=== PATIENT | female | born 1990 | race Caucasian/White ===

== ENCOUNTER → 2018-08-19 | Outpatient (REF) | payer OTHER | LOC: M LAB REF 17:15 | PROVIDERS: ATTEND Physician Assistant | DX: J02.9 Acute pharyngitis, unspecified (principal) ==

== ENCOUNTER 2018-10-27 17:39 | Emergency (ER) | payer OTHER ==
[~2018-10-27] VITALS: Ht 160 cm; Wt 74.0 kg
[2018-10-27 18:48] LABS: BASO # 0.1 10^3/uL (0.0-0.2); BASO % 0.5 % (0.0-1.0); EOS # 0.1 10^3/uL (0.0-0.50); EOS % 0.4 % (0.0-3.0); HEMATOCRIT 44.2 % (36.0-47.0); HEMOGLOBIN 14.4 g/dl (12.0-15.5); LYMPH # 2.7 10^3/uL (1.5-6.5); LYMPH % 22.5 % (24.0-44.0); MEAN CORPUSCULAR HEMOGLOBIN 30.4 pg (27.0-33.0); MEAN CORPUSCULAR HGB CONC 32.6 g/dl (32.0-36.5); MEAN CORPUSCULAR VOLUME 93.2 fl (80.0-96.0); MONO % 8.1 % (0.0-5.0); NEUTROPHILS # 8.1 10^3/uL (1.8-7.7); NEUTROPHILS % 68.1 % (36.0-66.0); PLATELET COUNT, AUTOMATED 378 10^3/uL (150-450); RED BLOOD COUNT 4.74 10^6/uL (4.00-5.40); WHITE BLOOD COUNT 11.8 10^3/uL (4.0-10.0)
[2018-10-27 19:18] LABS: BLOOD UREA NITROGEN 11 MG/DL (7-18); CARBON DIOXIDE LEVEL 27 MEQ/L (21-32); CHLORIDE LEVEL 108 MEQ/L (98-107); CREATININE FOR GFR 0.73 MG/DL (0.55-1.30); GLOMERULAR FILTRATION RATE > 60.0 (>60); GLUCOSE, FASTING 82 MG/DL (70-100); SODIUM LEVEL 144 MEQ/L (136-145)
[2018-10-27 20:21] LABS: HCG, SERUM QUANTITATIVE 5 MIU/ML
[2018-10-27 21:04] VITALS: BP 125/79
== END 2018-10-27 21:08 | disposition home or self-care (01) ==
LOC: M ED 17:39
DX: O20.9 Hemorrhage in early pregnancy, unspecified (principal); R10.2 Pelvic and perineal pain; O99.331 Smoking (tobacco) complicating pregnancy, first trimester; F17.210 Nicotine dependence, cigarettes, uncomplicated; Z88.5 Allergy status to narcotic agent; Z3A.01 Less than 8 weeks gestation of pregnancy

== ENCOUNTER → 2019-02-03 | Outpatient (CLI) | payer OTHER ==
[2019-02-03 13:13] LABS: BASO % 0.3 % (0.0-1.0); EOS # 0.1 10^3/uL (0.0-0.5); EOS % 0.7 % (0.0-3.0); HEMATOCRIT 40.6 % (36.0-47.0); HEMOGLOBIN 13.3 g/dl (12.0-15.5); LYMPH # 2.1 10^3/uL (1.5-5.0); LYMPH % 22.3 % (24.0-44.0); MEAN CORPUSCULAR HEMOGLOBIN 30.2 pg (27.0-33.0); MEAN CORPUSCULAR HGB CONC 32.8 g/dl (32.0-36.5); MEAN CORPUSCULAR VOLUME 92.1 fl (80.0-96.0); MONO # 0.7 10^3/uL (0.0-0.8); NEUTROPHILS # 6.7 10^3/uL (1.5-8.5); NEUTROPHILS % 69.3 % (36.0-66.0); PLATELET COUNT, AUTOMATED 367 10^3/uL (150-450); RED BLOOD COUNT 4.41 10^6/uL (4.00-5.40); WHITE BLOOD COUNT 9.6 10^3/uL (4.0-10.0)
[2019-02-03 14:28] LABS: CHLAMYDIA DNA AMPLIFICATION NEGATIVE (NEGATIVE); GC DNA AMPLIFICATION NEGATIVE (NEGATIVE)
[2019-02-03 16:09] LABS: HIV 1&2 SCREEN CENTAUR NEGATIVE (NEGATIVE); RUBELLA IgG QUALITATIVE IMMUNE (IMMUNE)
== END ==
LOC: M SMT 09:37
PROVIDERS: ATTEND Advanced Practice Midwife
DX: Z34.80 Encounter for supervision of other normal pregnancy, unspecified trimester (principal)

== ENCOUNTER → 2019-02-21 | Outpatient (REF) | payer OTHER | LOC: M LAB REF 13:00 | PROVIDERS: ATTEND Advanced Practice Midwife | DX: Z34.81 Encounter for supervision of other normal pregnancy, first trimester (principal) ==

== ENCOUNTER → 2019-04-03 | Outpatient (CLI) | payer OTHER ==
--- NOTE | 2019-04-03 14:40 | REP ---
OB ULTRASOUND: Real-time sonographic evaluation of gravid uterus performed. There is a single living intrauterine gestation. The estimated gestational age is 18 weeks 0 days, EDC 09/04/2019. Todays measurements indicate appropriate growth. BPD 41 mm = 18 weeks 3 days, 63rd percentile HC 151 mm = 18 weeks 1 day, 54th percentile AC 128 mm = 18 weeks 3 days, 58th percentile Femur length 26 mm = 18 weeks 0 days, 49th percentile HC/AC ratio 1.17, within normal range. Estimated weight 228 grams, 54th percentile. Cervix is closed and measures 4.2 cm in length. heart rate 152 beats per minute. SEEN/GROSSLY UNREMARKABLE Lateral ventricles Yes Posterior fossa Yes Upper lip Yes Four-chamber heart No LVOT No RVOT No Stomach Yes Cord insertion Yes Three vessel cord Yes Kidneys Yes Bladder Yes Spine No position: Transverse with head toward the maternal left side. Placenta: Anterior and grade 0 with no previa or abruption. Amniotic fluid: Within normal limits. Unreviewed
== END ==
LOC: M RAD 12:57
PROVIDERS: ATTEND Obstetrics & Gynecology
DX: Z34.80 Encounter for supervision of other normal pregnancy, unspecified trimester (principal); Z3A.18 18 weeks gestation of pregnancy

== ENCOUNTER 2019-05-05 21:48 | Outpatient (CLI) | payer OTHER ==
[~2019-05-05] VITALS: Ht 162.6 cm; Wt 74.6 kg
[2019-05-05 22:25] VITALS: BP 103/60
[2019-05-05 22:53] LABS: AMORPHOUS SEDIMENT SMALL (NEGATIVE); APPEARANCE, URINE HAZY (CLEAR); BACTERIA, URINE AUTO 1+ (NEGATIVE); BILIRUBIN, URINE AUTO NEGATIVE (NEGATIVE); BLOOD, URINE BLOOD NEGATIVE (NEGATIVE); COLOR, URINE YELLOW (YELLOW); GLUCOSE, URINE (UA) AUTO NEGATIVE (NEGATIVE); KETONE, URINE AUTO TRACE mg/dL (NEGATIVE); LEUKOCYTE ESTERASE, URINE AUTO NEGATIVE (NEGATIVE); MUCUS, URINE SMALL (NEGATIVE); NITRITE, URINE AUTO NEGATIVE (NEGATIVE); PROTEIN, URINE AUTO NEGATIVE (NEGATIVE); RBC, URINE AUTO 2 /HPF (0-3); SPECIFIC GRAVITY URINE AUTO 1.015 (1.002-1.035); SQUAMOUS EPITHELIAL CELL UR AU 1 /HPF (0-6); UROBILINOGEN, URINE AUTO 0.2 mg/dL (0.0-2.0); WBC, URINE AUTO 2 /HPF (0-3)
[2019-05-05] MEDS ORDERED: PRENTAB9 PO (23:00)
--- NOTE | 2019-05-05 23:01 | IPNPDOC ---
Text Note Date of Service The patient was seen on 05/05/19. NOTE Subjective: Cristina is a 28-year-old at 22.2wk gestation by LMP and consistent with first trimester ultrasound at 8.3wks. REECE: 09/04/19. She initiated her care with [facility] in her first trimester. Her has been uncomplicated. She presents to L&D with complaints of continuous leakage of small amount of clear, odorless discharge/fluid beginning earlier today. She is unsure of the timing but reports underwear being constantly wet. Patient denies vaginal itching, burning or dysuria. She denies any incontinence. Patient denies vaginal bleeding. Reports positive movement. She denies contractions or cramping. Allergy: Hydrocodone current medications: vitamins. OBGYN History: one full-term delivery October 2010 at 40 weeks of a living male via vaginal delivery weighting 7 lbs 8 oz. , two spontaneous abortions10/2008 and 10/2018, D&C from [facility] in 2008. Medical History: Raynaud's Syndrome Surgical History: D&C Social History: . Denies current tobacco use, former smoker. Denies alcohol abuse or drug use. No history of STDs. Family history: breast cancer, alcoholism, hypertension Objective: Alert and oriented x3. Respiratory rate is regular with no use of accessory muscles. Abdomen is gravid and soft and non tender with palpation. Fet al movement observed via bedside ultrasound with +FHR. Multiple pockets of fluid noted via bedside sono. JEFFREY obtained in 3 quadrants measuring 11.78cm. SSE: showed white discharge, no visible leakage of fluid or pooling in the vagina. Nitrazine negative and fern negative ferning. Wet mount did not show bacterial vaginosis or yeast. Urinalysis positive for trace ketones and urine culture pending. FHR baseline is 140. Assessment: IUP at 22 weeks gestation, leakage of fluid, membranes intact, not in labor Plan: Reviewed findings with patient. Encouraged patient to wear panty liner to monitor discharge. Danger signs of labor, rupture of membranes and abruption discussed. Encouraged adequate fluid intake. Will call patient with urine culture results if they are positive. Continue routine antepartum care, keep next visit. Patient has a repeat anatomy scan this week on . VS,Fishbone, I+O VS, Fishbone, I+O Vital Signs Label Value Date Time Patient Temperature 98.4 degrees F 05/05/192222 Pulse 87 05/05/192224 Respiratory Rate 16 bpm 05/05/192222 Blood Pressure Assessment 103/60 (74) 05/05/19 222 Source Automatic Cuff (NIBP) VIVIAN RAY CNM May 05, 2019 23:01
== END 2019-05-05 23:08 | disposition home or self-care (01) ==
LOC: M LDO 21:48
PROVIDERS: ATTEND Advanced Practice Midwife
DX: O26.892 Other specified pregnancy related conditions, second trimester (principal); Z3A.22 22 weeks gestation of pregnancy; Z88.5 Allergy status to narcotic agent; N89.8 Other specified noninflammatory disorders of vagina; O99.412 Diseases of the circulatory system complicating pregnancy, second trimester; I73.00 Raynaud's syndrome without gangrene

== ENCOUNTER → 2019-05-08 | Outpatient (CLI) | payer OTHER ==
[~2019-05-08] MED LIST: PRENTAB9 PO
--- NOTE | 2019-05-09 04:10 | REP ---
Clinical: Anatomical evaluation. Comparison: 04/03/2019 . Findings: Examination demonstrates a single live intrauterine in transverse presentation. motion is identified by technologist. Placenta is noted anterior and grade zero without evidence for placenta previa or abruption. Amniotic fluid volume is normal. Cervix measures 3.9 cm in length and appears closed. No evidence for nuchal cord. Gestational age by LMP 23 weeks 0 days with REECE 09/04/2019 . Gestational age by current measurements 22 weeks 5 days with REECE 09/06/2019 . FHR equals 144 beats per minute. Estimated weight 578 grams ( 53 percentile). Anatomical assessment demonstrates normal structures including four-chamber heart/ventricular outflow tracts, and spine. Impression: Single live intrauterine in transverse lie demonstrating appropriate interval growth. In conjunction with prior examination anatomical assessment is complete and normal.
== END ==
LOC: M WHC 09:00
PROVIDERS: ATTEND Advanced Practice Midwife
DX: O32.2XX0 Maternal care for transverse and oblique lie, not applicable or unspecified (principal); Z36.2 Encounter for other antenatal screening follow-up; Z3A.23 23 weeks gestation of pregnancy

== ENCOUNTER → 2019-06-03 | Outpatient (REF) | payer OTHER | LOC: M WHC 10:33 | PROVIDERS: ATTEND Advanced Practice Midwife | DX: Z34.82 Encounter for supervision of other normal pregnancy, second trimester (principal); Z3A.00 Weeks of gestation of pregnancy not specified ==

== ENCOUNTER → 2019-06-11 | Outpatient (REF) | payer OTHER ==
[2019-06-11 12:03] LABS: HEMATOCRIT 37.3 % (36.0-47.0); HEMOGLOBIN 12.1 g/dl (12.0-15.5); MEAN CORPUSCULAR HEMOGLOBIN 29.4 pg (27.0-33.0); MEAN CORPUSCULAR HGB CONC 32.4 g/dl (32.0-36.5); MEAN CORPUSCULAR VOLUME 90.5 fl (80.0-96.0); PLATELET COUNT, AUTOMATED 344 10^3/uL (150-450); RED BLOOD COUNT 4.12 10^6/uL (4.00-5.40); WHITE BLOOD COUNT 9.3 10^3/uL (4.0-10.0)
== END ==
LOC: M PLALAB 08:49
PROVIDERS: ATTEND Advanced Practice Midwife
DX: Z34.82 Encounter for supervision of other normal pregnancy, second trimester (principal); Z36.89 Encounter for other specified antenatal screening

== ENCOUNTER → 2019-07-02 | Outpatient (REF) | payer OTHER ==
[2019-07-02 15:57] LABS: ALT/SGPT 19 U/L (12-78); BILIRUBIN,DIRECT < 0.1 MG/DL (0.0-0.2); BILIRUBIN,TOTAL 0.3 MG/DL (0.2-1.0); TOTAL PROTEIN 7.1 GM/DL (6.4-8.2)
== END ==
LOC: M PLALAB 13:28
PROVIDERS: ATTEND Obstetrics & Gynecology
DX: Z34.93 Encounter for supervision of normal pregnancy, unspecified, third trimester (principal)

== ENCOUNTER → 2019-08-13 | Outpatient (REF) | payer OTHER | LOC: M PLALAB 13:42 | PROVIDERS: ATTEND Advanced Practice Midwife | DX: Z36.89 Encounter for other specified antenatal screening (principal); Z3A.00 Weeks of gestation of pregnancy not specified ==

== ENCOUNTER 2019-08-27 06:42 | Inpatient (IN) | payer OTHER ==
[~2019-08-27] VITALS: Ht 162.6 cm; Wt 78.0 kg
[2019-08-27] VITALS (42 sets, daily range): BP systolic 81–138; BP diastolic 51–77
[2019-08-27] MEDS ORDERED: OXYTOCIN 30 UNITS IN 0.9% NaCl 500ML IV BAG (J2590) As Ordered ONE (07:34)
[2019-08-27] MEDS ORDERED: LACTATED RINGER'S 1000 ML IV STA (07:44)
[2019-08-27 07:50] LABS: HEMATOCRIT 38.2 % (36.0-47.0); HEMOGLOBIN 12.6 g/dl (12.0-15.5); MEAN CORPUSCULAR HEMOGLOBIN 27.8 pg (27.0-33.0); MEAN CORPUSCULAR VOLUME 84.1 fl (80.0-96.0); PLATELET COUNT, AUTOMATED 366 10^3/uL (150-450); RED BLOOD COUNT 4.54 10^6/uL (4.00-5.40); WHITE BLOOD COUNT 17.5 10^3/uL (4.0-10.0)
[2019-08-27] MEDS: LR 1,000 ML IV SCH ×2 (07:53→12:46)
[2019-08-27] MEDS ORDERED: FENTANYL 2MCG/ML ROPIVACAINE 0.2% IN 0.9% NACL 100ML IVBAG As Ordered ONE (08:06)
--- NOTE | 2019-08-27 08:27 | HPE ---
DATE OF ADMISSION: 08/27/2019 Cristina is a 28-hour-old 4, para 1-0-2-1 at 38 and 6/7 weeks gestation, estimated date of confinement (EDC) of 09/04/2019 based on last menstrual period and confirmed by first her menstrual ultrasound. She presents to labor and delivery today with active labor. She was here earlier in the evening and sent home as she has no cervical change. She reports her spontaneous rupture of membranes, clear fluid at 0615 and contractions are more uncomfortable. She does report scant continued leakage. Denies vaginal bleeding and the fetus has been active. COURSE: Her care was initiated at [facility] in the first trimester. Her course, thus far, uncomplicated. OBSTETRICAL HISTORY: - October 2008, 8 weeks gestation miscarriage, dilation and curettage. - October 2010, spontaneous vaginal delivery of 7 pounds, 8 ounces male vaginal. Fetus in direct occiput posterior (OP) position. - October 18, 2018 spontaneous miscarriage. OBSTETRICAL LABS: A+, antibody screen negative, HIV negative, hepatitis B surface antigen negative. Hepatitis C antibody nonreactive, rubella immune, RPR nonreactive, gonorrhea and chlamydia negative. Urine culture negative. GBS negative. PAST MEDICAL HISTORY: Raynaud's disease. PAST SURGICAL HISTORY: Dilation and curettage. FAMILY HISTORY: Breast cancer, alcoholism, liver diseases. SOCIAL HISTORY: The patient is single, however, the father of the baby is at bedside and supportive. She is a nonsmoker. She denies alcohol or drug use. She denies any history of sexually transmitted infections. She denies history of abuse, physical, sexual and emotional. ALLERGIES: Vicodin. CURRENT MEDICATIONS: vitamins. OBJECTIVE: Temperature 97.1, pulse 82, blood pressure 118/70. heart rate is 140 with moderate variability about accelerations, no decelerations. Contractions every 3-5 minutes. Sterile vaginal exam: Per Saima Tillman RN, 4 cm dilated, 75% effaced, -2 station. ASSESSMENT: Intrauterine at 38-6/7 weeks. heart rate category 1, active labor. PLAN: Admit the patient to labor and delivery. Out of bed, ad baudilio IV fluid boluses as the patient is requesting an epidural for her labor coping, Routine labs. Will consider Pitocin as needed to augment her labor. I do anticipate continued labor progress and a spontaneous vaginal delivery. The patient has been verbally consented for emergency surgery and blood products if they are necessary.
[2019-08-27] MEDS ORDERED: EPIDURAL/PCA KEYS XX PRN (09:00)
[2019-08-27] MEDS ORDERED: REFRIGERATOR IV KEYS XX PRN (09:00)
[2019-08-27] MEDS ORDERED: NALOXONE INJ 0.4MG/1ML VIAL (J2310 PER 1MG) IV PRN (09:00)
[2019-08-27] MEDS ORDERED: ONDANSETRON 4MG/2ML VIAL IV PRN (09:00)
[2019-08-27] MEDS ORDERED: EPIDURAL COMMENT XX SCH (09:00)
[2019-08-27] MEDS ORDERED: FENTANYL/ROPIVACAINE/NACL BAG 100 ML EPIDURAL SCH (09:00)
[2019-08-27] MEDS ORDERED: diphenhydrAMINE 50MG/ML VIAL (J1200) IV PRN (09:00)
[2019-08-27] MEDS ORDERED: LACTATED RINGER'S 1000 ML IV PRN (09:00)
[2019-08-27] MEDS: ePHEDrine SULFATE 25 MG/5 ML(5MG/ML) SYRINGE IV PRN ×3 (09:17→09:48)
[2019-08-27] MEDS ORDERED: LR 1,000 ML IV SCH (11:49)
[2019-08-27] MEDS ORDERED: OXYTOCIN DRIP 30 UNITS in IV 1 EA IV SCH ×2 (12:00→15:35)
[2019-08-27] MEDS ORDERED: ACETAMINOPHEN TAB 650MG DOSE (2X325MG) PO PRN (15:45)
[2019-08-27] MEDS ORDERED: MEASLES,MUMPS,RUBELLA VACCINE INJ (MMR-II) (90707) SC SCH (15:45)
[2019-08-27] MEDS ORDERED: ACETAMINOPHEN 500 MG TAB PO PRN (15:45)
[2019-08-27] MEDS ORDERED: RHOGAM 300 MCG (1500 IU) INJ (J2790) IM SCH (15:45)
[2019-08-27] MEDS ORDERED: IBUPROFEN 800 MG TAB PO PRN (15:45)
[2019-08-27] MEDS ORDERED: METHYLERGONOVINE MALEATE 0.2 MG TAB PO PRN (15:45)
[2019-08-27] MEDS ORDERED: DIBUCAINE 1% OINTMENT 30GM TOP PRN (15:45)
[2019-08-27] MEDS ORDERED: DOCUSATE SODIUM 100 MG CAP PO PRN (15:45)
--- NOTE | 2019-08-27 15:59 | DN ---
DATE OF DELIVERY: 08/27/2019 DELIVERY NOTE: Cristina is a 28-year-old, 4, para 2-0-2-2 now, who is admitted to labor and delivery in active labor. She did utilize an epidural for her labor coping and she had a large amount of bloody show that was suspicious. She reached full dilation at 1426 hours. She pushed to a normal spontaneous vaginal delivery of a live female in right occiput posterior (ROP) position with restitution to occiput transverse (ROT) position. There was no nuchal cord. The shoulders delivered spontaneously and the corpus immediately followed. The female was placed on the maternal abdomen crying and active. Her mouth and nares were bulb suctioned. Spontaneous expulsion of an intact placenta with three-vessel cord by Evans mechanism was at 1505 hours. There appeared to be an approximately 30% of placental abruption. Uterine hemostasis was achieved with IV Pitocin rapid infusion and uterine fundal massage. Estimated blood loss 400 mL. Perineum and vagina inspected. Noted to have a vaginal abrasion. The vaginal abrasion had two interrupted sutures placed for hemostasis. female. Weight 6 pounds 8 ounces (2960 grams). score was 9 and 9. Mom is going to attempt to breast feed her daughter, and the family have named her Scarlet. At the close of delivery, lap counts, needle counts and instrument counts were correct and verified. [facility]
[2019-08-27] MEDS: IBUPROFEN 600 MG TAB PO PRN (21:50)
[2019-08-28 05:22] VITALS: BP 111/60
[2019-08-28] MEDS: IBUPROFEN 600 MG TAB PO PRN ×2 (08:03→23:53)
[2019-08-28] MEDS: PRENATAL VITAMINS CHEWABLE TABLET PO SCH (08:03)
[2019-08-28 18:06] VITALS: BP 114/73
[2019-08-29 06:00] VITALS: BP 122/73
[2019-08-29] MEDS ORDERED: ACET-683 PO (07:42)
[2019-08-29] MEDS: PRENATAL VITAMINS CHEWABLE TABLET PO SCH (08:27)
[2019-08-29] MEDS ORDERED: BOOSTRIX/ADACEL VACCINE (DIPHTH/PERTUSS/ACELL/TETANUS) 0.5ML SYR IM ONE (09:00)
== END 2019-08-29 11:10 | disposition home or self-care (01) | DRG 807 ==
LOC: M LDO 06:42 → M LDI 07:02 → M OBS 18:06
PROVIDERS: ADMIT Obstetrics & Gynecology; ATTEND Obstetrics & Gynecology
PROC: 10E0XZZ Delivery of Products of Conception, External Approach (ICD-10-PCS; principal; 2019-08-27)
DX: O45.8X3 Other premature separation of placenta, third trimester (principal); Z37.0 Single live birth; Z3A.38 38 weeks gestation of pregnancy

== ENCOUNTER → 2020-02-18 | Outpatient (REF) | payer OTHER ==
[~2020-02-18] MED LIST changes: +ACET-683 PO
[2020-02-18 15:14] LABS: CHLAMYDIA DNA AMPLIFICATION NEGATIVE (NEGATIVE); GC DNA AMPLIFICATION NEGATIVE (NEGATIVE)
[2020-02-18 16:38] LABS: HEPATITIS A ANTIBODY IGM NEGATIVE (NEGATIVE); HEPATITIS B CORE ANTIBODY IGM NEGATIVE (NEGATIVE); HEPATITIS B SURFACE ANTIGEN NEGATIVE (NEGATIVE); HEPATITIS C VIRUS ABY INDEX 0.1 INDEX (<0.8); HIV 1&2 SCREEN CENTAUR NEGATIVE (NEGATIVE)
== END ==
LOC: M PLALAB 11:49
PROVIDERS: ATTEND Obstetrics & Gynecology
DX: Z70.8 Other sex counseling (principal)

== ENCOUNTER → 2021-01-24 | Outpatient (REF) | payer OTHER | LOC: M LAB REF 16:26 | PROVIDERS: ATTEND Nurse Practitioner Family | DX: J02.9 Acute pharyngitis, unspecified (principal) ==

== ENCOUNTER → 2021-05-11 | Outpatient (CLI) | payer OTHER | LOC: M WHC 09:42 | PROVIDERS: ATTEND Nurse Practitioner Family | DX: Z12.31 Encounter for screening mammogram for malignant neoplasm of breast (principal); Z80.3 Family history of malignant neoplasm of breast ==

== ENCOUNTER → 2021-06-08 | Outpatient (REF) | payer OTHER ==
[2021-06-08 21:44] LABS: APPEARANCE, URINE HAZY (CLEAR); BACTERIA, URINE AUTO 2+ (NEGATIVE); BILIRUBIN, URINE AUTO NEGATIVE (NEGATIVE); BLOOD, URINE BLOOD NEGATIVE (NEGATIVE); COLOR, URINE YELLOW (YELLOW); GLUCOSE, URINE (UA) AUTO NEGATIVE (NEGATIVE); KETONE, URINE AUTO NEGATIVE (NEGATIVE); LEUKOCYTE ESTERASE, URINE AUTO TRACE (NEGATIVE); MUCUS, URINE SMALL (NEGATIVE); NITRITE, URINE AUTO NEGATIVE (NEGATIVE); PROTEIN, URINE AUTO NEGATIVE (NEGATIVE); RBC, URINE AUTO 0 /HPF (0-3); SPECIFIC GRAVITY URINE AUTO 1.009 (1.002-1.035); SQUAMOUS EPITHELIAL CELL UR AU 3 /HPF (0-6); UROBILINOGEN, URINE AUTO 0.2 mg/dL (0.0-2.0); WBC, URINE AUTO 2 /HPF (0-3)
== END ==
LOC: M LAB REF 21:01
PROVIDERS: ATTEND Physician Assistant
DX: N39.0 Urinary tract infection, site not specified (principal)

== ENCOUNTER 2021-07-31 00:54 | Emergency (ER) | payer OTHER ==
[~2021-07-31] VITALS: Ht 162.6 cm; Wt 76.4 kg
[2021-07-31 02:56] LABS: URINE PREG TEST POSITIVE (NEGATIVE)
[2021-07-31 04:36] LABS: BASO % 0.4 % (0.0-1.0); EOS % 0.2 % (0.0-3.0); HEMATOCRIT 38.6 % (36.0-47.0); HEMOGLOBIN 12.7 g/dl (12.0-15.5); LYMPH # 2.3 10^3/uL (1.5-5.0); LYMPH % 20.1 % (24.0-44.0); MEAN CORPUSCULAR HEMOGLOBIN 29.1 pg (27.0-33.0); MEAN CORPUSCULAR HGB CONC 32.9 g/dl (32.0-36.5); MEAN CORPUSCULAR VOLUME 88.3 fl (80.0-96.0); MONO # 0.7 10^3/uL (0.0-0.8); MONO % 6.1 % (2.0-8.0); NEUTROPHILS # 8.2 10^3/uL (1.5-8.5); NEUTROPHILS % 72.9 % (36.0-66.0); PLATELET COUNT, AUTOMATED 375 10^3/uL (150-450); RED BLOOD COUNT 4.37 10^6/uL (4.00-5.40); WHITE BLOOD COUNT 11.2 10^3/uL (4.0-10.0)
[2021-07-31 04:57] LABS: BLOOD UREA NITROGEN 7 MG/DL (7-18); CARBON DIOXIDE LEVEL 23 MEQ/L (21-32); CHLORIDE LEVEL 113 MEQ/L (98-107); CREATININE FOR GFR 0.58 MG/DL (0.55-1.30); GLOMERULAR FILTRATION RATE > 60.0 (>60); GLUCOSE, FASTING 119 MG/DL (70-100); POTASSIUM SERUM 4.2 MEQ/L (3.5-5.1); SODIUM LEVEL 141 MEQ/L (136-145)
[2021-07-31] MEDS ORDERED: MORPHINE 2 MG/ML 1ML VIAL IV ONE (06:15)
[2021-07-31 08:38] LABS: RSV AMPLIFICATION NEGATIVE (NEGATIVE)
[2021-07-31 09:26] VITALS: BP 141/76
== END 2021-07-31 09:30 | disposition home or self-care (01) ==
LOC: M ED 00:54
DX: O26.91 Pregnancy related conditions, unspecified, first trimester (principal); Z3A.01 Less than 8 weeks gestation of pregnancy; Z88.5 Allergy status to narcotic agent
CPT/HCPCS: 36415; 76801; 76817; 80048; 81001; 84702; 84703; 85025; 87631; 93976; 96374; 99284; J2270

== ENCOUNTER → 2021-08-01 | Outpatient (CLI) | payer OTHER | LOC: M LAB 09:57 | PROVIDERS: ATTEND Internal Medicine | DX: Z33.1 Pregnant state, incidental (principal) ==

== ENCOUNTER → 2021-08-03 | Outpatient (CLI) | payer OTHER | LOC: M LAB 09:07 | PROVIDERS: ATTEND Specialist | DX: N92.6 Irregular menstruation, unspecified (principal) ==

== ENCOUNTER → 2021-08-05 | Outpatient (CLI) | payer OTHER | LOC: M LAB 07:41 | PROVIDERS: ATTEND Specialist | DX: N93.9 Abnormal uterine and vaginal bleeding, unspecified (principal) ==

== ENCOUNTER → 2021-08-11 | Outpatient (REF) | payer OTHER | LOC: M PLALAB 08:18 | PROVIDERS: ATTEND Specialist | DX: Z01.419 Encounter for gynecological examination (general) (routine) without abnormal findings (principal) ==

== ENCOUNTER → 2021-08-11 | Outpatient (REF) | payer OTHER | LOC: M SFHCWAGY 18:47 | PROVIDERS: ATTEND Specialist | DX: Z12.4 Encounter for screening for malignant neoplasm of cervix (principal); R87.610 Atypical squamous cells of undetermined significance on cytologic smear of cervix (ASC-US) ==

== ENCOUNTER → 2021-11-10 | Outpatient (REF) | payer OTHER | LOC: M LAB REF 16:18 | PROVIDERS: ATTEND Pediatrics | DX: R39.9 Unspecified symptoms and signs involving the genitourinary system (principal) ==

== ENCOUNTER → 2022-04-18 | Outpatient (REF) | payer OTHER | LOC: M LAB REF 12:41 | PROVIDERS: ATTEND Nurse Practitioner Family | DX: J02.9 Acute pharyngitis, unspecified (principal) ==

== ENCOUNTER → 2022-08-22 | Outpatient (REF) | payer OTHER ==
[2022-08-22 14:46] LABS: BASO % 0.7 % (0.0-1.0); EOS % 0.3 % (0.0-3.0); HEMATOCRIT 43.3 % (36.0-47.0); HEMOGLOBIN 13.9 g/dl (12.0-15.5); LYMPH # 2.4 10^3/uL (1.5-5.0); LYMPH % 40.2 % (24.0-44.0); MEAN CORPUSCULAR HEMOGLOBIN 28.6 pg (27.0-33.0); MEAN CORPUSCULAR HGB CONC 32.1 g/dl (32.0-36.5); MEAN CORPUSCULAR VOLUME 89.1 fl (80.0-96.0); MONO # 0.5 10^3/uL (0.0-0.8); NEUTROPHILS # 2.9 10^3/uL (1.5-8.5); NEUTROPHILS % 49.6 % (36.0-66.0); PLATELET COUNT, AUTOMATED 411 10^3/uL (150-450); RED BLOOD COUNT 4.86 10^6/uL (4.00-5.40); WHITE BLOOD COUNT 5.9 10^3/uL (4.0-10.0)
[2022-08-22 14:52] LABS: ALBUMIN 3.8 G/DL (3.2-5.2); ALKALINE PHOSPHATASE 82 U/L (46-116); ALT/SGPT 30 U/L (7.0-40); AST/SGOT 21 U/L (<34); BILIRUBIN,TOTAL 0.5 MG/DL (0.3-1.2); BLOOD UREA NITROGEN 12 MG/DL (9-23); CALCIUM LEVEL 9.2 MG/DL (8.5-10.1); CARBON DIOXIDE LEVEL 26 MMOL/L (20-31); CHLORIDE LEVEL 105 MMOL/L (98-107); CHOLESTEROL LEVEL 201 MG/DL (<200); CREATININE FOR GFR 0.65 MG/DL (0.55-1.30); GLOMERULAR FILTRATION RATE > 60.0 (>60); GLUCOSE, FASTING 87 MG/DL (60-100); HDL CHOLESTEROL 60.9 MG/DL (>40); LDL CHOLESTEROL 124.3 MG/DL (<100); NON-HDL-C 140.1 MG/DL; POTASSIUM SERUM 4.4 MMOL/L (3.5-5.1); SODIUM LEVEL 139 MMOL/L (136-145); THYROID STIMULATING HORMONE 0.832 uIU/ML (0.55-4.78); TOTAL 25(OH) VITAMIN D 21.7 NG/ML (20.0-100.0); TOTAL PROTEIN 7.2 G/DL (5.7-8.2); TRIGLYCERIDES LEVEL 79 MG/DL (<150)
== END ==
LOC: M LAB REF 12:55
PROVIDERS: ATTEND Nurse Practitioner Family
DX: Z13.228 Encounter for screening for other metabolic disorders (principal)

== ENCOUNTER → 2023-08-24 | Outpatient (REF) ==
[2023-08-24 17:48] LABS: HEPATITIS B SURFACE ANTIGEN NEGATIVE (NEGATIVE)
[2023-08-24 18:01] LABS: HIV 1&2 SCREEN NEGATIVE (NEGATIVE)
[2023-08-24 18:10] LABS: HEPATITIS C VIRUS ABY INDEX < 0.02 INDEX (<0.8)
[2023-08-27 21:08] LABS: HEPATITIS C QUANTITATION HCV Not Detected IU/mL (.)
== END ==
LOC: M LAB REF 16:41
PROVIDERS: ATTEND Pediatrics
DX: Z11.9 Encounter for screening for infectious and parasitic diseases, unspecified (principal)

== ENCOUNTER → 2024-07-02 | Outpatient (REF) | payer OTHER | LOC: M LAB REF 12:22 | PROVIDERS: ATTEND Physician Assistant | DX: R30.0 Dysuria (principal) ==

== ENCOUNTER → 2025-03-12 | Outpatient (REF) | payer OTHER ==
[2025-03-14 12:57] LABS: HPV APTIMA Not Detected (Not Detected)
== END ==
LOC: M SFHCWAGY 13:12
PROVIDERS: ATTEND Physician Assistant
DX: Z01.419 Encounter for gynecological examination (general) (routine) without abnormal findings (principal)